=== PATIENT | female | born 1985 | race Two or more races ===

== ENCOUNTER 2018-09-23 21:28 | Emergency (ER) | payer SELFPAY ==
--- NOTE | 2018-09-23 21:42 | EDM.PDOC ---
<Helene Max - Last Filed: 09/23/18 21:57> ED HPI GENERAL MEDICAL PROBLEM - General Stated Complaint: PAINS IN LOWER ABDOMEN AND BURNING Time Seen by Provider: 09/23/18 21:36 Source of Information: Reports: Patient, Family History Limitations: Reports: Language Barrier - History of Present Illness INITIAL COMMENTS - FREE TEXT/NARRATIVE: HISTORY AND PHYSICAL: History of present illness: Patient is a 33-year-old female who is primarily speaking but has a gem technician with her. Patient presents to the ED today for concerns of burning with urination 4-5 days. Patient states she has a history of urinary tract infections and this feels like a urinary tract infection to her. She states she has had a history of kidney infections in the past but does not feel that this has yet become this. Patient states she came to the ER before it would spread. She states she does have slight suprapubic tenderness that is worse when she urinates. Patient is sexually active and not on control. She denies any new sexual partners. She denies fever, chills, abdominal pain, back pain, nausea, vomiting, shortness of breath, difficulties breathing, diarrhea, constipation, vaginal discharge, or all other GI, , respiratory, or cardiovascular concerns. Patient does have a history of pyelonephritis and urinary tract infection. Review of systems: As per history of present illness and below otherwise all systems reviewed and negative. Past medical history: As per history of present illness and as reviewed below otherwise noncontributory. Surgical history: As per history of present illness and as reviewed below otherwise noncontributory. Social history: No reported history of drug or alcohol abuse. Family history: As per history of present illness and as reviewed below otherwise noncontributory. Physical exam: General: Patient sitting comfortably in no acute distress and nontoxic appearing HEENT: Atraumatic, normocephalic, pupils reactive, negative for conjunctival pallor or scleral icterus, mucous membranes moist, throat clear, neck supple, nontender, trachea midline. No meningeal signs. Lungs: Clear to auscultation, breath sounds equal bilaterally, chest nontender. Heart: S1S2, regular, negative for clicks, rubs, or overt murmur. Abdomen: Mild tenderness to palpation of the suprapubic area. Soft, nondistended , nontender. Negative for masses or hepatosplenomegaly. Negative for costovertebral tenderness. No rigidity, rebound, guarding. Pelvis: Stable nontender. Genitourinary: Deferred. Rectal: Deferred. Extremities: Atraumatic, negative for cords or calf pain. Neurovascular unremarkable. Neuro: Awake, alert, oriented. Cranial nerves II through XII unremarkable. Cerebellum unremarkable. Motor and sensory unremarkable throughout. Exam nonfocal. Notes: Patient is primarily speaking and has a terminal computer operator friend with her today. Homoeopath was offered to them the patient declines preferring her friend. Dr. Doan has assumed care of this patient will follow remaining diagnostics and disposition. Diagnostics: UA, urine hcg Therapeutics: None Prescriptions: Keflex, Pyridium Impression: 1. Dysuria Plan: Definitive disposition and diagnosis as appropriate pending reevaluation and review of above. suprapubic Pain Score (Numeric/FACES): 7 - Related Data Allergies Allergy/AdvReac Type Severity Reaction Status Date / Time No Known Allergies Allergy Verified 09/23/18 21:39 Home Meds: Home Meds . [No Known Home Meds] 09/23/18 [History] ED ROS GENERAL - Review of Systems Review Of Systems: ROS reveals no pertinent complaints other than HPI. ED EXAM, RENAL/ - Physical Exam Exam: See Below (see dictation) Course - Vital Signs Last Recorded V/S: Last Vital Signs Temp 36.2 C 09/23/18 21:28 Pulse 92 09/23/18 21:28 Resp 18 09/23/18 21:28 BP 121/85 09/23/18 21:28 Pulse Ox 95 09/23/18 21:28 - Orders/Labs/Meds Orders: Active Orders 24 hr Category Date Time Status CULTURE URINE [RM] Stat Lab 09/23/18 21:40 Received Labs: Laboratory Tests 09/23/18 09/23/18 Range/Units 21:40 21:52 Urine Color YELLOW Urine Appearance CLEAR Urine pH 6.0 (5.0-8.0) Ur Specific Mary[place] <= 1.005 (1.001-1.035) Urine Protein NEGATIVE (NEGATIVE) mg/dL Urine Glucose (UA) NEGATIVE (NEGATIVE) mg/dL Urine Ketones NEGATIVE (NEGATIVE) mg/dL Urine Occult Blood NEGATIVE (NEGATIVE) Urine Nitrite NEGATIVE (NEGATIVE) Urine Bilirubin NEGATIVE (NEGATIVE) Urine Urobilinogen 0.2 (<2.0) EU/dL Ur Leukocyte Esterase TRACE H (NEGATIVE) Urine RBC 0-1 (0-2/HPF) Urine WBC 0-3 (0-5/HPF) Ur Epithelial Cells RARE (NONE-FEW) Urine Bacteria RARE (NEGATIVE) Urine HCG, Qual POSITIVE (NEGATIVE) Departure - Departure Disposition: Home, Self-Care 01 Clinical Impression: UTI, Urinary tract infectious disease, - Discharge Information Instructions: Urinary Tract Infection, Adult, [id number] Referrals: PCP,None [Primary Care Provider] - Additional Instructions: The following information is given to patients seen in the emergency department who are being discharged to home. This information is to outline your options for follow-up care. We provide all patients seen in our emergency department with a follow-up referral. The need for follow-up, as well as the timing and circumstances, are variable depending upon the specifics of your emergency department visit. If you don't have a primary care physician on staff, we will provide you with a referral. We always advise you to contact your personal physician following an emergency department visit to inform them of the circumstance of the visit and for follow-up with them and/or the need for any referrals to a consulting specialist. The emergency department will also refer you to a specialist when appropriate. This referral assures that you have the opportunity for followup care with a specialist. All of these measure are taken in an effort to provide you with optimal care, which includes your followup. Under all circumstances we always encourage you to contact your private physician who remains a resource for coordinating your care. When calling for followup care, please make the office aware that this follow-up is from your recent emergency room visit. If for any reason you are refused follow-up, please contact the [facility] emergency department at and asked to speak to the emergency department charge nurse. [facility] - Women's Health [address] [place] [id number] Keflex as prescribed push fluids follow-up women's health as discussed return as needed as discussed[] <Javy Doan - Last Filed: 09/23/18 22:27> ED HPI GENERAL MEDICAL PROBLEM - History of Present Illness INITIAL COMMENTS - FREE TEXT/NARRATIVE: Patient will be discharged with diagnosis of #1 #2 urinary tract infection she to follow-up with [employer] Keflex as prescribed return as needed as discussed Departure - Departure Time of Disposition: 22:26 Condition: Good
== END 2018-09-23 22:40 | disposition home or self-care (01) ==
LOC: MW.ED 21:28
DX: O23.40 Unspecified infection of urinary tract in pregnancy, unspecified trimester (principal)
CPT/HCPCS: 81001; 81025; 87086; 99282; 99283